=== PATIENT | female | born 1930 | race Hispanic/Latino ===

== ENCOUNTER 2017-09-13 10:41 | Outpatient (CLI) | payer MEDICARE ==
--- NOTE | 2017-09-19 18:44 | Magnetic Resonance Report ---
MR scan of the cranium was performed without contrast. Pulse sequences included: 1. T1 weighted sagittal and axial images without contrast 2. T2 weighted axial and coronal images 3. FLAIR axial images 4. Diffusion-weighted axial images 5. Apparent diffusion coefficient images 6. Gradient echo T2 axial images Views of the posterior fossa showed a normal craniocervical junction. Cerebellar pontine angles were normal with normal seventh-eighth nerve complexes. Brainstem and cerebellum were normal. The ventricular system showed mild dilatation but no distortion. Images of the hemispheres showed no areas of increased or decreased signal. Some atrophy was seen in the temporal and parietal lobes with enlargement of the Sylvian fissures. Sinuses, flow voids in the [place], orbits, and basal ganglia were normal. Pituitary showed a partially empty sella. Impression: Mildly abnormal MR scan of the cranium without contrast 1. mild cortical atrophy 2. mild ventricular dilation 3. partially empty sella
== END 2017-09-13 10:42 | disposition home or self-care (01) ==
LOC: MRI 10:41
PROVIDERS: ATTEND Specialist
DX: G31.89 Other specified degenerative diseases of nervous system (principal)
CPT/HCPCS: 70551